=== PATIENT | female | born 1980 ===

== ENCOUNTER 2023-04-13 12:36 | Observation (INO) | payer MEDICAID | END 2023-04-13 14:14 | disposition home or self-care (01) | LOC: LDRP 12:36 → UNDOADMOB 12:36 → LDRP 12:37 → UNDODISOB 14:14 | PROVIDERS: ADMIT Obstetrics & Gynecology; ATTEND Obstetrics & Gynecology | DX: O24.419 Gestational diabetes mellitus in pregnancy, unspecified control (principal); Z3A.28 28 weeks gestation of pregnancy | CPT/HCPCS: 59025; 76818; 81002; 82948; 82962; 94760; G0378 ==

== ENCOUNTER 2023-04-16 11:52 | Observation (INO) | payer MEDICAID | END 2023-04-16 13:26 | disposition home or self-care (01) | LOC: LDRP 11:52 | PROVIDERS: ADMIT Obstetrics & Gynecology; ATTEND Obstetrics & Gynecology | DX: O24.419 Gestational diabetes mellitus in pregnancy, unspecified control (principal); Z3A.28 28 weeks gestation of pregnancy | CPT/HCPCS: 59025; 81002; 82948; 82962; G0378 ==

== ENCOUNTER 2023-04-17 10:21 | Observation (INO) | payer MEDICAID ==
[2023-04-19] MEDS ORDERED: PREN1TAB71 OR (12:32)
[2023-04-19] MEDS ORDERED: METF-370 PO (13:45)
== END 2023-04-19 14:15 | disposition home or self-care (01) ==
LOC: LDRP 04-19 12:15
PROVIDERS: ADMIT Obstetrics & Gynecology; ATTEND Obstetrics & Gynecology
DX: O24.419 Gestational diabetes mellitus in pregnancy, unspecified control (principal); Z3A.29 29 weeks gestation of pregnancy
CPT/HCPCS: 59025; 81002; 82948; 82962; 94760; G0378

== ENCOUNTER 2023-05-16 14:36 | Observation (INO) | payer MEDICAID ==
[~2023-05-16 14:36] MED LIST: METF-370 PO; PREN1TAB71 OR
== END 2023-05-16 16:57 | disposition home or self-care (01) ==
LOC: UNDOADMOB 14:36 → LDRP 14:36
PROVIDERS: ADMIT Obstetrics & Gynecology; ATTEND Obstetrics & Gynecology
DX: O24.419 Gestational diabetes mellitus in pregnancy, unspecified control (principal); Z3A.33 33 weeks gestation of pregnancy
CPT/HCPCS: 59025; 76805; 76818; 81002; 82948; 94760; G0378

== ENCOUNTER 2023-05-19 09:52 | Observation (INO) | payer MEDICAID ==
[2023-05-19 11:54] LABS: Basophils # (auto) 0 10 ^3/uL (0-0.2); Basophils % (auto) 0.4 % (0.0-2.0); Eosinophils # (auto) 0.2 10 ^3/uL (0-0.8); Eosinophils % (auto) 1.3 % (0.0-7.0); Hematocrit 32.6 % (36.0-46.0); Hemoglobin 10.6 g/dL (12.2-16.2); Lymphocytes # (auto) 2.5 10 ^3/uL (0.4-5.4); Lymphocytes % (auto) 20.4 % (10.0-50.0); Mean Corpuscular Hemoglobin 27.7 pg (28.0-32.0); Mean Corpuscular Hgb Conc. 32.7 g/dL (32.0-36.0); Mean Corpuscular Volume 84.7 fL (80.0-100.0); Monocytes # (auto) 0.7 10 ^3/uL (0-1.3); Monocytes % (auto) 5.6 % (0.0-12.0); Neutrophils % (auto) 72.3 % (37.0-80.0); Red Blood Cells 3.85 10^6/uL (4.0-5.20); Red Cell Distribution Width 14.8 % (11.8-14.3); White Blood Cell 12.5 10^3/uL (4.4-10.8)
[2023-05-22 05:07] LABS: RPR Non Reactive (Non Reactive)
== END 2023-05-19 12:08 | disposition home or self-care (01) ==
LOC: LDRP 09:52
PROVIDERS: ADMIT Obstetrics & Gynecology; ATTEND Obstetrics & Gynecology
DX: O24.415 Gestational diabetes mellitus in pregnancy, controlled by oral hypoglycemic drugs (principal); Z3A.33 33 weeks gestation of pregnancy; Z79.84 Long term (current) use of oral hypoglycemic drugs
CPT/HCPCS: 36415; 59025; 76818; 81002; 82962; 83036; 85025; 86592; G0378

== ENCOUNTER 2023-05-23 08:48 | Observation (INO) | payer MEDICAID | END 2023-05-23 10:24 | disposition home or self-care (01) | LOC: LDRP 09:03 → UNDOADMOB 09:03 → LDRP 09:06 → UNDODISOB 10:24 | PROVIDERS: ADMIT Obstetrics & Gynecology; ATTEND Obstetrics & Gynecology | DX: O24.419 Gestational diabetes mellitus in pregnancy, unspecified control (principal); Z3A.34 34 weeks gestation of pregnancy | CPT/HCPCS: 59025; 76818; 81002; 82948; 82962; 94760; G0378 ==

== ENCOUNTER 2023-05-25 09:13 | Observation (INO) | payer MEDICAID | END 2023-05-25 11:48 | disposition home or self-care (01) | LOC: UNDOADMOB 09:13 → LDRP 09:13 → UNDODISOB 11:48 | PROVIDERS: ADMIT Obstetrics & Gynecology; ATTEND Obstetrics & Gynecology | DX: O24.419 Gestational diabetes mellitus in pregnancy, unspecified control (principal); Z3A.34 34 weeks gestation of pregnancy | CPT/HCPCS: 59025; 76818; 81002; 82948; G0378 ==

== ENCOUNTER 2023-05-28 12:25 | Observation (INO) | payer MEDICAID ==
[~2023-05-28] VITALS: Ht 160 cm; Wt 106.6 kg
== END 2023-05-28 14:48 | disposition home or self-care (01) ==
LOC: LDRP 12:25 → UNDOADMOB 12:25 → UNDODISOB 12:26 → LDRP 12:44 → UNDODISOB 14:48
PROVIDERS: ADMIT Obstetrics & Gynecology; ATTEND Obstetrics & Gynecology
DX: O24.419 Gestational diabetes mellitus in pregnancy, unspecified control (principal); O40.3XX0 Polyhydramnios, third trimester, not applicable or unspecified; Z98.51 Tubal ligation status; Z3A.34 34 weeks gestation of pregnancy
CPT/HCPCS: 59025; 76818; 81002; 82962; G0378

== ENCOUNTER 2023-05-31 12:50 | Observation (INO) | payer MEDICAID | END 2023-05-31 14:14 | disposition home or self-care (01) | LOC: UNDOADMOB 12:50 → LDRP 12:50 → UNDODISOB 14:14 | PROVIDERS: ADMIT Obstetrics & Gynecology; ATTEND Obstetrics & Gynecology | DX: O24.419 Gestational diabetes mellitus in pregnancy, unspecified control (principal); Z3A.35 35 weeks gestation of pregnancy | CPT/HCPCS: 59025; 76818; 81002; 82948; 82962; 94760; G0378 ==

== ENCOUNTER 2023-06-06 09:10 | Observation (INO) | payer MEDICAID | END 2023-06-06 10:22 | disposition home or self-care (01) | LOC: LDRP 09:10 | PROVIDERS: ADMIT Obstetrics & Gynecology; ATTEND Obstetrics & Gynecology | DX: O24.419 Gestational diabetes mellitus in pregnancy, unspecified control (principal); Z3A.36 36 weeks gestation of pregnancy | CPT/HCPCS: 59025; 76818; 81002; 82948; 82962; G0378 ==

== ENCOUNTER 2023-06-18 18:41 | Observation (INO) | payer MEDICAID ==
[~2023-06-18] VITALS: Ht 162.6 cm; Wt 107.5 kg
== END 2023-06-18 21:10 | disposition home or self-care (01) ==
LOC: LDRP 18:41
PROVIDERS: ADMIT Obstetrics & Gynecology; ATTEND Obstetrics & Gynecology
DX: O24.419 Gestational diabetes mellitus in pregnancy, unspecified control (principal); Z3A.37 37 weeks gestation of pregnancy
CPT/HCPCS: 59025; 76818; 81002; G0378

== ENCOUNTER 2023-06-22 10:12 | Observation (INO) | payer MEDICAID | END 2023-06-22 12:12 | disposition home or self-care (01) | LOC: LDRP 10:12 → UNDOADMOB 10:12 → LDRP 10:56 → UNDODISOB 12:12 | PROVIDERS: ADMIT Obstetrics & Gynecology; ATTEND Obstetrics & Gynecology | DX: O24.419 Gestational diabetes mellitus in pregnancy, unspecified control (principal); O09.523 Supervision of elderly multigravida, third trimester; Z3A.38 38 weeks gestation of pregnancy | CPT/HCPCS: 59025; 76818; 81002; 82948; 82962; 94760; G0378 ==

== ENCOUNTER 2023-06-25 03:37 | Inpatient (IN) | payer MEDICAID ==
[~2023-06-25] VITALS: Ht 160 cm; Wt 112.5 kg
[2023-06-25] MEDS ORDERED: DERMOPLAST 60ML BOTTLE TOP PRN (04:15)
[2023-06-25] MEDS ORDERED: PENICILLIN G POT 5MIL/D5 50ML 50 ML IV ONE (04:15)
[2023-06-25] MEDS ORDERED: WITCH HAZEL-GLYCERIN PAD TOP PRN (04:15)
[2023-06-25] MEDS ORDERED: PROMETHAZINE HCL 25 MG/ML 1ML IV PRN (04:15)
[2023-06-25] MEDS ORDERED: LACTATED RINGER'S 1,000 ML IV SCH (04:15)
[2023-06-25] MEDS ORDERED: PHISODERM TOP SOLN 240ML BTL TOP PRN (04:15)
[2023-06-25] MEDS ORDERED: LIDOCAINE 2%HCL (LOCAL ANESTH.) INJ 20ML MDV IJ PRN (04:15)
[2023-06-25] MEDS ORDERED: LACT. RINGERS/OXYTOCIN 20UNITS 500 ML IV ONE ×2 (04:15→04:45)
[2023-06-25 04:50] LABS: Basophils # (auto) 0 10 ^3/uL (0-0.2); Basophils % (auto) 0.2 % (0.0-2.0); Eosinophils # (auto) 0.1 10 ^3/uL (0-0.8); Eosinophils % (auto) 0.3 % (0.0-7.0); Hematocrit 36.5 % (36.0-46.0); Hemoglobin 11.9 g/dL (12.2-16.2); Lymphocytes # (auto) 3.2 10 ^3/uL (0.4-5.4); Lymphocytes % (auto) 20.7 % (10.0-50.0); Mean Corpuscular Hemoglobin 27.9 pg (28.0-32.0); Mean Corpuscular Hgb Conc. 32.5 g/dL (32.0-36.0); Mean Corpuscular Volume 85.9 fL (80.0-100.0); Monocytes # (auto) 0.9 10 ^3/uL (0-1.3); Monocytes % (auto) 5.6 % (0.0-12.0); Neutrophils # (auto) 11.4 10 ^3/uL (1.6-8.6); Neutrophils % (auto) 73.2 % (37.0-80.0); Red Blood Cells 4.25 10^6/uL (4.0-5.20); Red Cell Distribution Width 15.2 % (11.8-14.3); White Blood Cell 15.6 10^3/uL (4.4-10.8)
[2023-06-25 05:05] LABS: INR 0.96 (0.9-1.15); Prothrombin Time 10.1 sec (9.3-11.8)
[2023-06-25 05:12] LABS: Albumin 4.1 g/dL (3.2-4.8); Alkaline Phosphatase 195 U/L (46-116); Anion Gap 10 (5-15); Aspartate Aminotransferase 11 U/L (13-40); BUN/Creatinine Ratio 13.6 (10.0-20.0); Bilirubin, Total 0.3 mg/dL (0.2-1.0); Blood Urea Nitrogen 8 mg/dL (9-23); Calcium 9.1 mg/dL (8.7-10.4); Carbon Dioxide 21 mmol/L (20-30); Chloride 106 mmol/L (98-107); Glucose 131 mg/dL (74-106); Potassium 4.2 mmol/L (3.5-5.1); Sodium 137 mmol/L (136-145); Total Protein 7.1 g/dL (5.7-8.2)
[2023-06-25 05:14] LABS: Alanine Aminotransferase < 9 U/L (7-40)
[2023-06-25 05:21] LABS: Amphetamine Screen, Urine Neg (NEGATIVE); Barbiturate Scree,Urine Neg (NEGATIVE); Benzodiazephine Screen, Urine Neg (NEGATIVE); Cannabinoid Screen, Urine Neg (NEGATIVE); Cocaine Screen, Urine Neg (NEGATIVE); Opiate Scree,Urine Neg (NEGATIVE); Phencyclidine Screen, Urine Neg (NEGATIVE)
[2023-06-25 05:44] LABS: Urine Bacteria FEW /hpf (None Seen); Urine Blood 2+ /uL (Negative); Urine Clarity Clear (Clear); Urine Color Colorless (Yellow); Urine Protein, UAD Negative (Negative); Urine Specific Gravity 1.006 (1.001-1.035); Urine Urobilinogen Normal (Negative); Urine WBC 2 /hpf (0 - 5); Urine pH 6.5 (5.0-8.0)
[2023-06-25] MEDS ORDERED: ONDANSETRON HCL 4 MG/2 ML VIAL IV PRN (06:00)
[2023-06-25] MEDS ORDERED: ACCU-CHEK COMFORT CURVE STRIP VI SCH (06:00)
[2023-06-25] MEDS ORDERED: miSOPROStol 100 mcg TAB SL PRN (06:00)
[2023-06-25] MEDS ORDERED: CARBOPROST TROMETHAMINE 250 MCG/1ML VIAL IM PRN (06:00)
[2023-06-25] MEDS ORDERED: miSOPROStol 100 mcg TAB PR PRN (06:00)
[2023-06-25] MEDS ORDERED: METHYLERGONOVINE MALEATE 0.2 MG/ML AMP IM PRN (06:00)
[2023-06-25] MEDS ORDERED: miSOPROStol 100 mcg TAB ONE (06:08)
[2023-06-25] MEDS ORDERED: PENICILLIN G POTASSIUM 2,500,000 UNITS in D5W 5% 50 ML IV SCH (08:15)
[2023-06-25] MEDS ORDERED: ONDANSETRON ODT 4 MG TAB PO PRN (09:15)
[2023-06-25] MEDS ORDERED: DIPHENOXYLATE W/ATROPINE 2.5 MG TAB PO SCH (10:00)
[2023-06-25 10:55] VITALS: BP 116/52; PULSE 83; RESP 16; TEMP 99.6; O2SAT 99
[2023-06-25] MEDS: IBUPROFEN 600 MG TAB PO PRN (12:17)
[2023-06-25 15:10] VITALS: BP 107/68; PULSE 89; RESP 16; TEMP 99.3; O2SAT 97
[2023-06-25] MEDS: ACETAMINOPHEN 325 MG TAB PO PRN (16:30)
[2023-06-25 19:00] VITALS: BP 122/60; PULSE 72; RESP 16; TEMP 98.3; O2SAT 95
[2023-06-25 23:00] VITALS: BP 120/68; PULSE 76; RESP 16; TEMP 98; O2SAT 98
[2023-06-26] MEDS: ACETAMINOPHEN 325 MG TAB PO PRN (00:32)
[2023-06-26 03:00] VITALS: BP 113/77; PULSE 70; RESP 16; TEMP 98; O2SAT 98
[2023-06-26] MEDS ORDERED: IBU600T PO (06:25)
[2023-06-26 07:00] VITALS: BP 106/71; PULSE 68; RESP 18; TEMP 98.6; O2SAT 98
[2023-06-26 07:07] LABS: RPR Non Reactive (Non Reactive)
[2023-06-26] MEDS: IBUPROFEN 600 MG TAB PO PRN (07:07)
[2023-06-27 19:06] LABS: Treponema pallidum Ab (FTA-Ab) Non Reactive (Non Reactive)
== END 2023-06-26 09:55 | disposition home or self-care (01) | DRG 560 ==
LOC: LDRP 03:37 → UNDOADMOB 03:37 → INTOOBSV 04:07 → OBSVTOIN 04:07 → LDRP 04:07 → OBSVTOIN 04:14 → LDRP 08:29
PROVIDERS: ADMIT Obstetrics & Gynecology; ATTEND Obstetrics & Gynecology
PROC: 10E0XZZ Delivery of Products of Conception, External Approach (ICD-10-PCS; principal; 2023-06-25)
PROC: 10907ZC Drainage of Amniotic Fluid, Therapeutic from Products of Conception, Via Natural or Artificial Opening (ICD-10-PCS; 2023-06-25)
DX: O62.3 Precipitate labor (principal); Z37.0 Single live birth; O24.32 Unspecified pre-existing diabetes mellitus in childbirth; Z3A.38 38 weeks gestation of pregnancy
CPT/HCPCS: 36415; 59025; 59409; 80053; 80307; 81001; 85025; 85610; 85730; 86592; 86850; 86900; 86901; 94760; 96360; 96361; 96365; 96366; G0378; J2590; J7060